=== PATIENT | female | born 1960 | race Caucasian/White ===

== ENCOUNTER 2022-02-21 15:37 | Outpatient (CLI) | payer BC | END 2022-02-21 15:38 | disposition home or self-care (01) | LOC: CSHMAMMO 15:37 | PROVIDERS: ATTEND Family Medicine | DX: Z12.31 Encounter for screening mammogram for malignant neoplasm of breast (principal) | CPT/HCPCS: 77063; 77067 ==

== ENCOUNTER 2024-05-06 12:42 | Outpatient (CLI) | payer BC | END 2024-05-06 12:43 | disposition home or self-care (01) | LOC: CSHMAMMO 12:42 | PROVIDERS: ATTEND Family Medicine | DX: Z12.31 Encounter for screening mammogram for malignant neoplasm of breast (principal); Z12.2 Encounter for screening for malignant neoplasm of respiratory organs; Z87.891 Personal history of nicotine dependence | CPT/HCPCS: 71271; 77063; 77067 ==